=== PATIENT | male | born 1930 | race Asian ===

== ENCOUNTER 2017-03-04 16:56 | Emergency (ER) | payer MEDICARE ==
[~2017-03-04] VITALS: Ht 157.5 cm; Wt 70.3 kg
[2017-03-04 16:58] VITALS: BP 111/54
--- NOTE | 2017-03-04 17:10 | Emergency Room Report ---
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 Had salmon/dinner and wine at dinner Not sure what happens, denies trauma "all of a sudden I was getting a lot of attention." Denies PMhx of HTN, DM - not on HTN meds, DM meds Takes "just a medication for Alzheimers" Drinks glass of wine daily Denies drug use, smoking Allergies: Coded Allergies: No Known Allergies (Unverified , 03/04/17) Patient History Past Medical History: dementia Past Surgical History: none Pertinent Family History: none Social History: Reports: alcohol use Reviewed Nursing Documentation: PMH: Agreed, PSxH: Agreed Nursing Documentation-PMH Past Medical History: No History, Except For Review of Systems All Other Systems: negative except mentioned in HPI Physical Exam Vital Signs Date Time Temp Pulse Resp B/P (MAP) Pulse Ox O2 Delivery O2 Flow Rate FiO2 03/04/17 16:50 98.2 72 16 98/45 98 Room Air Sp02 EP Interpretation: reviewed, normal General Appearance: normal inspection, well appearing, no apparent distress, alert, GCS 15, non-toxic Head: normocephalic, atraumatic Eyes: bilateral eye PERRL, bilateral eye EOMI ENT: normal ENT inspection, hearing grossly normal, normal voice Neck: normal inspection, full range of motion, supple, no bony tend Respiratory: normal inspection, lungs clear, normal breath sounds, no respiratory distress, no retraction, no accessory muscle use, no wheezing, speaking full sentences Cardiovascular #1: regular rate, rhythm, no edema Gastrointestinal: normal inspection, normal bowel sounds, non tender, soft, no guarding, no hernia Genitourinary: no CVA tenderness Musculoskeletal: normal inspection, back normal, normal range of motion, Clarita' s Sign negative Neurologic: normal inspection, alert, oriented x3, responsive, uncrater III-XII nml as tested, motor strength/tone normal, speech normal Medical Decision Making Diagnostic Impression: Primary Impression: Syncope Qualified Codes: R55 - Syncope and collapse ER Course Syncope VSS. Afebrile No additional episodes here Likely vasovagal mediated D/w , son Patient NOT on beta-raghavendra came later, states just started on BP Med, losartan Son states just landed last night, ?concerned for dehyration ECG NSR. Was given 500cc by EMS Labs: H&H stable. No leuks or sign of infection. Troponin WNL. D-dimer mildly elevated but bilateral duplex lower extremities was negative for DVT Has had multiple PVCs on monitor but electrolytes normal Possibly multifactorial - dehydration and new BP medication. BP is stable/ borderline low here Patient has reliable followup - DC home to followup with PMD when returns to [place] for cardiac echo/?stress test Patient, , and son understand instructions EKG Diagnostic Results Rate: normal Rhythm: NSR ST Segments: no acute changes ASA given to the pt in ED: No Rhythm Strip Diag. Results EP Interpretation: yes Rate: 77 Rhythm: NSR, other - Multiple PVCs Last Vital Signs Date Time Temp Pulse Resp B/P (MAP) Pulse Ox O2 Delivery O2 Flow Rate FiO2 03/04/17 16:58 98.2 78 16 111/54 98 Room Air Status: improved Disposition: HOME, SELF-CARE AYAN LO M.D. Mar 04, 2017 17:10
[2017-03-04 17:28] LABS: BASOPHILS % (AUTO) 0.5 % (0.0-2.0); EOSINOPHILS % (AUTO) 1.5 % (0.0-3.0); MEAN CORPUSCULAR HEMOGLOBIN 31.9 PG (27.0-31.0); MEAN CORPUSCULAR HGB CONC 31.4 G/DL (32.0-36.0); MEAN CORPUSCULAR VOLUME 102 FL (80-99); MEAN PLATELET VOLUME 6.3 FL (6.5-10.1); MONOCYTES % (AUTO) 6.5 % (1.0-10.0); NEUTROPHILS % (AUTO) 78.5 % (45.0-75.0); PLATELET COUNT 135 K/UL (150-450); RED BLOOD COUNT 3.23 M/UL (4.70-6.10); RED CELL DISTRIBUTION WIDTH 12.2 % (11.6-14.8); WHITE BLOOD COUNT 6.2 K/UL (4.8-10.8)
[2017-03-04] MEDS ORDERED: TIMOPTIC 0.25%1 EACH OP (17:31)
[2017-03-04] MEDS ORDERED: LOSARTAN POTAS100 MG ORAL (17:31)
[2017-03-04] MEDS ORDERED: IMODIUM A-1 MG/7.5 M PO (17:31)
[2017-03-04] MEDS ORDERED: LEXAPRO10 MG ORAL (17:31)
[2017-03-04] MEDS ORDERED: DONEPEZIL HCL10 MG ORAL (17:31)
[2017-03-04] MEDS ORDERED: TAMSULOSIN HCL0.4 MG ORAL (17:31)
[2017-03-04] MEDS ORDERED: VITAMIN D1000 UNI1 ORAL (17:31)
[2017-03-04] MEDS ORDERED: CITRUCEL POWDE454 GM PO (17:31)
[2017-03-04 17:56] LABS: ALANINE AMINOTRANSFERASE 18 U/L (12-78); ANION GAP 13 mmol/L (5-15); ASPARTATE AMINO TRANSFERASE 18 U/L (15-37); CALCIUM 8.5 MG/DL (8.5-10.1); CARBON DIOXIDE 21 MMOL/L (21-32); CHLORIDE 109 MMOL/L (98-107); CKMB 0.8 NG/ML (0.0-3.6); CREATININE 1.3 MG/DL (0.55-1.30); POTASSIUM 3.8 MMOL/L (3.5-5.1); SODIUM 143 MMOL/L (136-145); TOTAL PROTEIN 6.3 G/DL (6.4-8.2)
[2017-03-04 18:20] VITALS: BP 118/63
[2017-03-04 18:59] VITALS: BP 118/63
--- NOTE | 2017-03-05 08:46 | Diagnostic Imaging Report ---
Indication: SOB Technique: One view of the chest Comparison: none Findings: Left diaphragm is elevated. Lungs and pleural spaces are clear. Heart size is upper limits of normal. Aorta is tortuous Impression: No acute process
--- NOTE | 2017-03-06 18:37 | Cardiology Report ---
APPROVED REPORT EKG Measurement Heart [id number] [place] [id number] Normal sinus rhythm Normal ECG
--- NOTE | 2017-03-07 11:21 | Diagnostic Imaging Report ---
APPROVED REPORT CPT Code: 58962 Present Symptoms Comments: Elevated D-Dimer. Hypotension. BILATERAL: Imaging reveals a patent deep venous system bilaterally. There is no evidence of thrombus within the femoral, popliteal or tibial segments. The greater saphenous veins are also within normal limits. Doppler indicates normal spontaneous flow within these segments. Incidental finding: Proximal superficial femoral arteries are mildly calcified bilaterally.
== END 2017-03-04 19:01 | disposition home or self-care (01) ==
LOC: EDBD 16:56 → EMR 17:25
DX: R55 Syncope and collapse (principal)
CPT/HCPCS: 36415; 71010; 80053; 82550; 82553; 84484; 85025; 85379; 93005; 93970; 99283